=== PATIENT | male | born 1990 | race Caucasian/White ===

== ENCOUNTER 2017-03-16 13:25 | Emergency (ER) | payer BC, OTHER ==
[2017-03-16] MEDS ORDERED: ACETAMINOPHEN TAB 500 MG TAB PO STA (13:39)
[2017-03-16] MEDS: SODIUM CHLORIDE 0.9% 500 ML IV SCH ×3 (14:01→15:07)
[2017-03-16 14:10] LABS: Basophils % (A) 0 %; CH 30.9; CHCM 34.4; Eosinophils # (A) 0.1 k/uL (0-0.7); Eosinophils % (A) 1 %; HCT 51.2 % (39.0-53.0); HDW 2.63; HGB 17.4 gm/dL (13.0-17.5); Luc # (Auto) 0.08; Luc % (Auto) 1; Lymphocytes # (A) 0.2 k/uL (1.0-4.8); Lymphocytes % (A) 2 %; MCH 30.7 pg (25.0-35.0); MCV 90.2 fL (80.0-100.0); Mean Platelet Volume 7.6; Monocytes # (A) 0.4 k/uL (0-1.0); Monocytes % (A) 3 %; Neutrophils # (A) 11.1 k/uL (1.3-7.7); Neutrophils % (A) 94 %; RBC 5.67 m/uL (4.30-5.90); RDW 13.5 % (11.5-15.5); WBC 11.7 k/uL (3.8-10.6); WBC (Perox) 12.05
[2017-03-16 14:14] LABS: ALT 45 U/L (21-72); AST 29 U/L (17-59); Alkaline Phosphatase 80 U/L (38-126); Anion Gap 14 mmol/L; Blood Urea Nitrogen 20 mg/dL (9-20); Calcium 9.9 mg/dL (8.4-10.2); Carbon Dioxide 26 mmol/L (22-30); Chloride 101 mmol/L (98-107); Glucose 122 mg/dL (74-99); Non-African American GFR(MDRD) >60 (>60 ml/min/1.73 sqM); Potassium 4.3 mmol/L (3.5-5.1); Sodium 141 mmol/L (137-145); Total Protein 8.2 g/dL (6.3-8.2)
--- NOTE | 2017-03-16 14:32 | XR ---
EXAMINATION TYPE: XR chest 2V DATE OF EXAM: 03/16/2017 COMPARISON: NONE HISTORY: Chest pain TECHNIQUE: Frontal and lateral views of the chest are obtained. FINDINGS: Heart and mediastinum are normal. Lungs are clear. Diaphragm is normal. Bony thorax is int act. There are chest leads. IMPRESSION: Normal chest
--- NOTE | 2017-03-16 14:42 | ED ---
General Adult HPI - General Chief complaint: Abdominal Pain Stated complaint: Flu Time Seen by Provider: 03/16/17 13:39 Source: patient Mode of arrival: ambulatory Limitations: no limitations - History of Present Illness Initial comments: John is a previously healthy 26 yo male who presents to the ED for evaluation of nausea and vomiting since this morning. Patient reports he has been suffering from URI like symptoms, nasal congestion, sinus drainage and non- productive cough for 2 weeks duration. Patient reports he has been treating this symptomatically with OTC medications, reports that earlier in the week he felt that he was getting better however over the past few days he is again feeling congested and having a nonproductive cough. Patient reports that since waking this morning he spit experiencing multiple episodes of nonbloody diarrhea , persistent nausea and multiple episodes of nonbloody nonbilious emesis. She reports that because of this he's been unable to even tolerate liquids or food. He began to feel lightheaded, and became concerned that he may be dehydrated therefore he decided to come to the emergency department for evaluation. 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 Patient reports no significant past medical history. No history of IV drug abuse. No history of immunocompromise state. He does report that he previously had his gallbladder taken out and states that there is a resident her problems in his family resulting in most of her gallbladder taken out. He denies any other surgical history. - Related Data Previous Rx's Medication Instructions Recorded Dicyclomine [Bentyl] 10 mg PO QID #15 capsule 03/16/17 Ondansetron Odt [Zofran Odt] 4 mg PO Q8HR PRN #12 tab 03/16/17 Allergies Allergy/AdvReac Type Severity Reaction Status Date / Time No Known Allergies Allergy Verified 03/16/17 14:07 Review of Systems ROS Statement: Those systems with pertinent positive or pertinent negative responses have been documented in the HPI. ROS Other: All systems not noted in ROS Statement are negative. Constitutional: Reports: fever, chills ENT: Denies: throat pain Respiratory: Reports: cough. Denies: dyspnea, wheezes Cardiovascular: Reports: palpitations. Denies: chest pain, dyspnea on exertion , edema Endocrine: Reports: fatigue Gastrointestinal: Reports: nausea, vomiting, diarrhea. Denies: abdominal pain, constipation, hematemesis, melena, hematochezia Genitourinary: Denies: urgency, dysuria, frequency Musculoskeletal: Denies: back pain Skin: Denies: rash, lesions Neurological: Denies: headache, weakness Psychiatric: Denies: anxiety, depression Hematological/Lymphatic: Denies: easy bleeding, easy bruising Past Medical History Past Medical History: Asthma, Eye Disorder, GERD/Reflux, Musculoskeletal Disorder Additional Past Medical History / Comment(s): LAZY LT EYE. LT SHOULDER DISLOCATES OCC. History of Any Multi-Drug Resistant Organisms: None Reported Past Surgical History: Cholecystectomy Additional Past Surgical History / Comment(s): HOLLAND EYE SURG., EGD 12/23/14 Past Anesthesia/Blood Transfusion Reactions: No Reported Reaction Past Psychological History: No Psychological Hx Reported Smoking Status: Never smoker Past Alcohol Use History: Occasional Past Drug Use History: None Reported - Past Family History Mother Family Medical History: No Reported History Father Family Medical History: GERD/Reflux, Myocardial Infarction (DC) General Exam Limitations: no limitations General appearance: alert, in no apparent distress, other Head exam: Present: atraumatic (Appears dehydrated), normocephalic Eye exam: Present: normal appearance, PERRL ENT exam: Present: mucous membranes dry Neck exam: Present: normal inspection, full ROM. Absent: lymphadenopathy Respiratory exam: Present: normal lung sounds bilaterally. Absent: respiratory distress Cardiovascular Exam: Present: normal rhythm, tachycardia GI/Abdominal exam: Present: soft, normal bowel sounds. Absent: distended, tenderness, guarding, rebound, rigid, organomegaly, mass Rectal exam: Present: deferred Extremities exam: Present: normal inspection, full ROM, normal capillary refill , other (No splinter hemorrhages, no Janeway lesions or Osler nodes). Absent: tenderness Back exam: Present: normal inspection Neurological exam: Present: alert, altered, oriented X3 Psychiatric exam: Present: normal affect, normal mood Skin exam: Present: warm, dry, other (facial flushing). Absent: cyanosis, diaphoretic Course Vital Signs 03/16/17 03/16/17 03/16/17 13:29 14:17 15:10 Temperature 100.8 F H 99.9 F H Pulse Rate 124 H 99 102 H Respiratory 18 20 18 Rate Blood Pressure 134/72 137/63 112/72 O2 Sat by Pulse 95 98 98 Oximetry 03/16/17 03/16/17 16:05 16:19 Temperature 99.2 F 99.2 F Pulse Rate 100 100 Respiratory 16 16 Rate Blood Pressure 110/57 110/57 O2 Sat by Pulse 94 L 94 L Oximetry - Reevaluation(s) Reevaluation #1: Patient re-evaluated, fever decreased, HR decreased to 90s, IVF infusing. Patient feeling better, nausea improved. 03/16/17 15:20 EKG Findings - EKG Comments: EKG Findings:: EKG at 1400 - rate 109, rhythm is sinus tachycardia number axis is normal, bones are normal, there are no acute ST elevations or depressions noted, there is T-wave inversion in 3, there is no evidence of acute ischemia or infarction. Medical Decision Making - Medical Decision Making Patient was seen and evaluated, history was obtained from the patient Patient with recent URI symptoms woke today with nausea vomiting diarrhea. Patient does report that he ate a [employer] yesterday afternoon however his father also ate there and doesn't have any similar symptoms Vital signs were reviewed, patient is febrile and tachycardic Labs and fluids were ordered Labs were reviewed, mild leukocytosis, glucose mildly elevated at 122 Influenza and mono were both negative.. Patient was reevaluated after IV fluids. Fever and tachycardia have resolved, patient is able to tolerate by mouth intake and was drinking water. However he does feel the urge to have a bowel movement and does report that he feels he does still have diarrhea. IM until was ordered. The patient is suffering from nausea, vomiting and diarrhea, this could be secondary to viral gastritis or food poisoning. I discussed this with the patient and recommended supportive care including significant oral intake of a salt sugar containing solutions such as Gatorade or Powerade. I advised the patient to begin eating as he feels he can tolerate it. I advised the patient he should return to the emergency department should he develop any progressive worsening of his abdominal pain, fever or chills. All questions pertaining to care were answered to the best of my ability and the patient was discharged home in stable condition. Patient was given a work note for tomorrow should he have persistent diarrhea - Lab Data Result diagrams: 03/16/17 13:47 03/16/17 13:47 Lab Results 03/16/17 03/16/17 03/16/17 Range/Units 13:47 13:47 13:47 WBC 11.7 H (3.8-10.6) k/uL RBC 5.67 (4.30-5.90) m/uL Hgb 17.4 (13.0-17.5) gm/dL Hct 51.2 (39.0-53.0) % MCV 90.2 (80.0-100.0) fL MCH 30.7 (25.0-35.0) pg MCHC 34.0 (31.0-37.0) g/dL RDW 13.5 (11.5-15.5) % Plt Count 253 (150-450) k/uL Neutrophils % 94 % Lymphocytes % 2 % Monocytes % 3 % Eosinophils % 1 % Basophils % 0 % Neutrophils # 11.1 H (1.3-7.7) k/uL Lymphocytes # 0.2 L (1.0-4.8) k/uL Monocytes # 0.4 (0-1.0) k/uL Eosinophils # 0.1 (0-0.7) k/uL Basophils # 0.0 (0-0.2) k/uL Sodium (137-145) mmol/L Potassium (3.5-5.1) mmol/L Chloride (98-107) mmol/L Carbon Dioxide (22-30) mmol/L Anion Gap mmol/L BUN (9-20) mg/dL Creatinine (0.66-1.25) mg/dL Est GFR (MDRD) Af Amer (>60 ml/min/1.73 sqM) Est GFR (MDRD) Non-Af (>60 ml/min/1.73 sqM) Glucose (74-99) mg/dL Plasma Lactic Acid [place] (0.7-2.0) mmol/L Calcium (8.4-10.2) mg/dL Total Bilirubin (0.2-1.3) mg/dL AST (17-59) U/L ALT (21-72) U/L Alkaline Phosphatase (38-126) U/L Total Protein (6.3-8.2) g/dL Albumin (3.5-5.0) g/dL Heterophile Antibody Negative (Negative) Influenza Type A RNA Not Detected (Not Detectd) Influenza Type B (PCR) Not Detected (Not Detectd) 03/16/17 03/16/17 Range/Units 13:47 13:47 WBC (3.8-10.6) k/uL RBC (4.30-5.90) m/uL Hgb (13.0-17.5) gm/dL Hct (39.0-53.0) % MCV (80.0-100.0) fL MCH (25.0-35.0) pg MCHC (31.0-37.0) g/dL RDW (11.5-15.5) % Plt Count (150-450) k/uL Neutrophils % % Lymphocytes % % Monocytes % % Eosinophils % % Basophils % % Neutrophils # (1.3-7.7) k/uL Lymphocytes # (1.0-4.8) k/uL Monocytes # (0-1.0) k/uL Eosinophils # (0-0.7) k/uL Basophils # (0-0.2) k/uL Sodium 141 (137-145) mmol/L Potassium 4.3 (3.5-5.1) mmol/L Chloride 101 (98-107) mmol/L Carbon Dioxide 26 (22-30) mmol/L Anion Gap 14 mmol/L BUN 20 (9-20) mg/dL Creatinine 0.95 (0.66-1.25) mg/dL Est GFR (MDRD) Af Amer >60 (>60 ml/min/1.73 sqM) Est GFR (MDRD) Non-Af >60 (>60 ml/min/1.73 sqM) Glucose 122 H (74-99) mg/dL Plasma Lactic Acid [place] 1.3 (0.7-2.0) mmol/L Calcium 9.9 (8.4-10.2) mg/dL Total Bilirubin 1.0 (0.2-1.3) mg/dL AST 29 (17-59) U/L ALT 45 (21-72) U/L Alkaline Phosphatase 80 (38-126) U/L Total Protein 8.2 (6.3-8.2) g/dL Albumin 4.7 (3.5-5.0) g/dL Heterophile Antibody (Negative) Influenza Type A RNA (Not Detectd) Influenza Type B (PCR) (Not Detectd) Disposition Clinical Impression: Nausea vomiting and diarrhea, Viral illness Disposition: HOME SELF-CARE Condition: Good Instructions: Dehydration (ED), Gastroenteritis (ED), Acute Nausea and Vomiting (ED) Prescriptions: Dicyclomine [Bentyl] 10 mg PO QID #15 capsule Ondansetron Odt [Zofran Odt] 4 mg PO Q8HR PRN #12 tab PRN Reason: Nausea Referrals: Mesfin Rodriguez MD [Primary Care Provider] - 1-2 days
[2017-03-16] MEDS ORDERED: DICYCLOMINE 10 MG/ML 2 ML AMP IM STA (15:49)
[2017-03-16 16:05] VITALS: BP 110/57; PULSE 100; RESP 16; TEMP 99.2
== END 2017-03-16 16:19 | disposition home or self-care (01) ==
LOC: EC 13:25
DX: B34.9 Viral infection, unspecified (principal); R00.0 Tachycardia, unspecified; D72.829 Elevated white blood cell count, unspecified; R73.9 Hyperglycemia, unspecified; Z90.49 Acquired absence of other specified parts of digestive tract
CPT/HCPCS: 36415; 93005; 80053; 83605; 85025; 86308; 87040; 87502; 71020; 99284; 96360; 96361; 96372; J0500

== ENCOUNTER 2018-02-09 10:39 | Day surgery (SDC) | payer OTHER ==
[2018-02-05 13:39] VITALS: BMI 23.6
[~2018-02-09 10:39] MED LIST: LACTATED RINGERS 1,000 ML IV SCH; LIDOCAINE 1% 20 ML VIAL (10MG/ML) FOR IV START INTRADERMA PRN
[2018-02-09 11:02] VITALS: RESP 16; TEMP 97.9
[2018-02-09] MEDS ORDERED: LIDOCAINE 1% INJ 10MG/ML (20 ML MDV) ONE (11:30)
[2018-02-09] MEDS ORDERED: PROPOFOL 10 MG/ML 20 ML VIAL IV ONE (11:30)
[2018-02-09] MEDS ORDERED: fentaNYL (PF) 50 MCG/ML 2 ML AMP ONE (11:30)
[2018-02-09] MEDS ORDERED: GLUCAGON 1 MG/ML VIAL ONE (11:30)
--- NOTE | 2018-02-09 11:53 | P.GSHP ---
History of Present Illness H&P Date: 02/09/18 Chief Complaint: GERD, diarrhea, constipation This a 26-year-old male who presents today for EGD colonoscopy. Patient had issues with GERD. He's has complaints of diarrhea and alternating constipation. Past Medical History Past Medical History: Asthma, Eye Disorder, GERD/Reflux, Musculoskeletal Disorder Additional Past Medical History / Comment(s): states being currently treated for colitis, has had blood in stool, LAZY LT EYE. LT SHOULDER DISLOCATES OCC. History of Any Multi-Drug Resistant Organisms: None Reported Past Surgical History: Cholecystectomy Additional Past Surgical History / Comment(s): HOLLAND EYE SURG, EGD 12/23/14 Past Anesthesia/Blood Transfusion Reactions: No Reported Reaction Smoking Status: Never smoker - Past Family History Mother Family Medical History: No Reported History Father Family Medical History: GERD/Reflux, Myocardial Infarction (ME) Medications and Allergies Home Medications Medication Instructions Recorded Confirmed Type Ciprofloxacin HCl [Cipro] 500 mg PO BID 02/05/18 02/09/18 History metroNIDAZOLE [Flagyl] 500 mg PO TID 02/05/18 02/09/18 History Allergies Allergy/AdvReac Type Severity Reaction Status Date / Time No Known Allergies Allergy Verified 02/05/18 13:36 Surgical - Exam Vital Signs Temp Pulse Resp BP 97.9 F 62 16 129/78 02/09/18 10:59 02/09/18 10:59 02/09/18 10:59 02/09/18 10:59 - General well developed, no distress - Eyes PERRL - ENT normal pinna - Neck no masses - Respiratory normal expansion - Cardiovascular Rhythm: regular - Abdomen Abdomen: soft, non tender Assessment and Plan Assessment: GERD, constipation and diarrhea. We'll perform EGD and colonoscopy.
--- NOTE | 2018-02-09 12:10 | P.OP ---
Date of Procedure: 02/09/18 Preoperative Diagnosis: GERD Diarrhea Constipation Postoperative Diagnosis: Antral gastritis Mild esophagitis Procedure(s) Performed: EGD Anesthesia: MAC Surgeon: Jerad Tian Pathology: other (Antral, esophagus) Condition: stable Disposition: PACU Description of Procedure: Patient's placed on the endoscopy table in the lateral position. Received IV sedation. The gastroscope placed oropharynx passed in the esophagus and into the stomach. Scope was then placed through the pylorus. The first and second portion of the duodenum appeared normal. Scope was then brought back the antrum this. Mildly inflamed. A biopsies performed. Scope was then retroflexed and the remainder of the stomach appeared normal. There is no significant hiatal hernia. The distal esophagus appeared minimally inflamed. A biopsies performed. The GE junction was at 40 cm presented to the proximal esophagus appeared normal. Scope was withdrawn for patient. Next digital rectal exam was performed. The prostate was symmetric without nodules. There was no abnormalities noted. The flexible colonoscope was then placed anus passed through the colon. The scope could not be placed into the cecum secondary to tortuosity valve. This point scope withdrawn. The transverse colon descending colon and sigmoid colon appeared normal. Scope was then brought back into the rectum and this was normal. Scope was withdrawn for patient.
[2018-02-09 12:36] VITALS: BP 120/74; PULSE 66
== END 2018-02-09 13:05 | disposition home or self-care (01) ==
LOC: ORWHC2ENDO 10:39
PROVIDERS: ATTEND Surgery
DX: K21.9 Gastro-esophageal reflux disease without esophagitis (principal); K59.00 Constipation, unspecified; K52.9 Noninfective gastroenteritis and colitis, unspecified; J45.909 Unspecified asthma, uncomplicated; M79.9 Soft tissue disorder, unspecified; H53.002 Unspecified amblyopia, left eye; Z79.2 Long term (current) use of antibiotics
CPT/HCPCS: 88305; 45378; 43239; J1610; J2001; J3010; J2704